=== PATIENT | male | born 1995 | race Caucasian/White ===

== ENCOUNTER → 2016-08-06 | Emergency (ER) | payer BC, OTHER ==
[~2016-08-06] MED LIST: TRAMADOL 50 MG TAB ONE; TRIMETH/SULFAMETH 160/800 TAB ONE
== END ==
LOC: ER 02:48
DX: L02.412 Cutaneous abscess of left axilla (principal); L04.2 Acute lymphadenitis of upper limb

== ENCOUNTER 2016-08-10 00:17 | Emergency (ER) | payer BC ==
[2016-08-10] MEDS ORDERED: LIDOCAINE/EPI 1% MDV 20 ML ONE (01:02)
[2016-08-10] MEDS ORDERED: SOD BICARB 8.4% VIAL 50 ML ONE (01:02)
== END 2016-08-10 01:37 | disposition home or self-care (01) ==
LOC: ER 00:17
DX: L73.2 Hidradenitis suppurativa (principal); L02.412 Cutaneous abscess of left axilla

== ENCOUNTER 2016-08-17 19:59 | Emergency (ER) | payer BC ==
[2016-08-17] MEDS ORDERED: OPTIRAY 350 100 ML VIAL HMH IV ONE (20:00)
[2016-08-17] MEDS ORDERED: KETOROLAC 30 MG/ML VIAL ONE (22:03)
[2016-08-17] MEDS ORDERED: SODIUM CHLORIDE 0.9% 1,000 ML ONE (22:03)
== END 2016-08-18 01:46 | disposition home or self-care (01) ==
LOC: ER 19:59
DX: R10.9 Unspecified abdominal pain (principal); R50.9 Fever, unspecified
CPT/HCPCS: 36415; 71020; 74177; 80053; 81003; 83690; 85025; 86403; 87804; 87880; 96361; 96374